=== PATIENT | female | born 1975 ===

== ENCOUNTER → 2018-05-07 21:19 | Outpatient (REF) | payer OTHER, SELFPAY ==
[2018-05-08 02:24] LABS: Free T3, Triiodothyronine Free 3.65 pg/mL (2.77-5.27); Free T4, Direct Thyroxine 1.46 ng/dL (0.78-2.19)
[2018-05-08 02:38] LABS: Thyroid Stimulating Hormone 0.85 uIU/mL (0.47-4.68)
[2018-05-09 17:06] LABS: Anti Thyroglobulin Antibody 2 IU/mL (< 2); Thyroid Peroxidase Antibodies 1 IU/mL (< 9)
== END ==
LOC: LAB 21:19
PROVIDERS: Visit Provider Naturopath
DX: E03.9 Hypothyroidism, unspecified (principal)
CPT/HCPCS: 36415; 84439; 84443; 84481; 86376; 86800